=== PATIENT | male | born 1970 | race American Indian/Alaskan Native ===

== ENCOUNTER 2016-02-15 13:43 | Emergency (ER) | payer OTHER ==
[2016-02-15 13:56] VITALS: BP 102/64
[2016-02-15] MEDS ORDERED: XOPENEX IH ONE (14:02)
[2016-02-15] MEDS ORDERED: ATROVENT IH ONE (14:02)
--- NOTE | 2016-02-15 14:57 | Emergency Department Report ---
ED Asthma HPI - General Chief Complaint: Adult Asthma Stated Complaint: ASTHMA Time Seen by Provider: 02/15/16 14:00 Source: patient Mode of arrival: Ambulatory Limitations: No Limitations - History of Present Illness Initial Comments: Patient is a 45-year-old male with a history of asthma( 1 year) presents with asthma exacerbation today. Patient states he left work and was driving when he started to cough and could not control his coughing. Patient states prior to that he had taken Goody powder for ear pain relief. Patient states he had difficulty breathing and felt a tightness in his chest and felt a throat closing up and felt like he could not breathe so he drove to the ER. Patient denies fevers/chills/nausea/vomiting as chest pain/dizziness/blurry vision or any other disturbances. - Related Data Previous Rx's Medication Instructions Recorded Last Taken Type Albuterol Sulfate [Albuterol 0.63% 0.63 mg IH PRN #9 ml 02/15/16 Unknown Rx NEBS] Nebulizer/Compressor [Innospire 1 each MC PRN PRN #1 pump 02/15/16 Unknown Rx Essence Opal Neb] Prednisone [predniSONE 10 mg 10 mg PO .TAPER #1 tab.ds.pk 02/15/16 Unknown Rx (6-Day Pack, 21 Tabs)] Allergies Allergy/AdvReac Type Severity Reaction Status Date / Time No Known Allergies Allergy Unverified 02/15/16 14:09 ED Review of Systems ROS: Stated complaint: ASTHMA Other details as noted in HPI Constitutional: denies: chills, fever Eyes: denies: eye pain, eye discharge, vision change ENT: denies: ear pain, throat pain, dental pain, hearing loss Respiratory: denies: cough, shortness of breath, SOB with exertion, SOB at rest , wheezing Cardiovascular: denies: chest pain, palpitations Endocrine: no symptoms reported Gastrointestinal: denies: abdominal pain, nausea, vomiting, diarrhea, constipation Genitourinary: denies: urgency, dysuria Musculoskeletal: denies: back pain, joint swelling, arthralgia, myalgia Skin: denies: rash, lesions Neurological: denies: headache, weakness, paresthesias Psychiatric: denies: anxiety, depression Hematological/Lymphatic: denies: easy bleeding, easy bruising ED Past Medical Hx - Past Medical History Hx Asthma: Yes - Surgical History Past Surgical History?: Yes Additional Surgical History: Sinus - Social History Smoking Status: Former Smoker Substance Use Type: None - Medications Home Medications: Home Medications Medication Instructions Recorded Confirmed Last Taken Type Albuterol Sulfate [Albuterol 0.63% 0.63 mg IH PRN #9 ml 02/15/16 Unknown Rx NEBS] Nebulizer/Compressor [Innospire 1 each MC PRN PRN #1 pump 02/15/16 Unknown Rx Essence Opal Neb] Prednisone [predniSONE 10 mg 10 mg PO .TAPER #1 tab.ds.pk 02/15/16 Unknown Rx (6-Day Pack, 21 Tabs)] ED Physical Exam - General Limitations: No Limitations General appearance: alert, in no apparent distress - Head Head exam: Present: atraumatic, normocephalic - Eye Eye exam: Present: normal appearance, PERRL, EOMI - ENT ENT exam: Present: mucous membranes moist - Neck Neck exam: Present: normal inspection - Respiratory Respiratory exam: Present: normal lung sounds bilaterally. Absent: respiratory distress, wheezes, stridor, chest wall tenderness, accessory muscle use - Cardiovascular Cardiovascular Exam: Present: regular rate, normal rhythm. Absent: systolic murmur, diastolic murmur, rubs, gallop - GI/Abdominal GI/Abdominal exam: Present: soft, normal bowel sounds - Rectal Rectal exam: Present: deferred - Extremities Exam Extremities exam: Present: normal inspection - Back Exam Back exam: Present: normal inspection - Neurological Exam Neurological exam: Present: alert, oriented X3 - Psychiatric Psychiatric exam: Present: normal affect, normal mood - Skin Skin exam: Present: warm, dry, intact, normal color. Absent: rash ED Course Vital Signs 02/15/16 13:53 Temperature 98.2 F Pulse Rate 98 H Respiratory 26 H Rate Blood Pressure 102/64 O2 Sat by Pulse 94 Oximetry ED Medical Decision Making - Medical Decision Making 55-year-old male presents with asthma exacerbation. Patient is alert and oriented. Patient is not in any respiratory or acute distress. ED course. Patient received 125 mg IM prednisone. Patient also received 2 rounds of respiratory breathing treatment. One dose of Atrovent and another of levalbuterol. Discuss at home prescriptions Patient states he is feeling much better and is able to move air and breathing much better. He denies difficulty breathing right now. Discussed follow-up with primary care physician. Discuss referrals given. Discussed home compressor and albuterol nebulizer exacerbation at home. Discussed continue taking prescribed inhaler as needed. Critical care attestation.: If time is entered above; I have spent that time in minutes in the direct care of this critically ill patient, excluding procedure time. ED Disposition Clinical Impression: Asthma exacerbation Disposition: DISCHARGED TO HOME OR SELFCARE Is pt being admited?: No Does the pt Need Aspirin: No Condition: Stable Instructions: Asthma (ED) Prescriptions: Albuterol Sulfate [Albuterol 0.63% NEBS] 0.63 mg IH PRN #9 ml Nebulizer/Compressor [Innospire Essence Opal Neb] 1 each MC PRN PRN #1 pump PRN Reason: Bronchospasm Prednisone [predniSONE 10 mg (6-Day Pack, 21 Tabs)] 10 mg PO .TAPER #1 tab.ds.pk Referrals: PRIMARY CARE, [Primary Care Provider] - 3-5 Days [facility] [Outside] - 3-5 Days [facility] [Outside] - 3-5 Days [facility] [Outside] - 3-5 Days Forms: Work/School Release Form(ED) Time of Disposition: 15:36
== END 2016-02-15 15:37 | disposition home or self-care (01) ==
LOC: ED 13:43
DX: J45.901 Unspecified asthma with (acute) exacerbation (principal); Z87.891 Personal history of nicotine dependence
CPT/HCPCS: 94640; 96372; 99282; J2930